=== PATIENT | male | born 1990 | race Hispanic/Latino ===

== ENCOUNTER 2020-12-05 21:02 | Emergency (ER) | payer SELFPAY ==
[2020-12-05] MEDS ORDERED: KETOROLAC 60 MG VIAL (30MG/ML) ONE (21:37)
[2020-12-05] MEDS ORDERED: HYDROCODONE/ACETAMINOPHEN 10/325 MG TAB ONE (21:38)
[2020-12-05] MEDS ORDERED: CYCLOBENZAPRINE HCL 10 MG TABLET ONE (21:38)
== END 2020-12-05 22:20 | disposition home or self-care (01) ==
LOC: EDH 21:02
DX: M94.0 Chondrocostal junction syndrome [Tietze] (principal); M54.42 Lumbago with sciatica, left side
CPT/HCPCS: 71045; 72100; 96372; 99284; J1885

== ENCOUNTER 2021-01-23 21:50 | Emergency (ER) | payer SELFPAY ==
[2021-01-23] MEDS ORDERED: HYDROCODONE/ACETAMINOPHEN 5/325 MG TAB ONE (22:04)
== END 2021-01-23 23:46 | disposition left against medical advice (07) ==
LOC: EDH 21:50
DX: R21 Rash and other nonspecific skin eruption (principal); Z53.21 Procedure and treatment not carried out due to patient leaving prior to being seen by health care provider
CPT/HCPCS: 71045